=== PATIENT | female | born 1970 | race Caucasian/White ===

== ENCOUNTER 2020-09-29 08:38 | Observation (INO) ==
[2020-09-29] MEDS ORDERED: NS 0.9% 1000 ml BAG 1,000 ML IV ONE (09:26)
[2020-09-29] MEDS ORDERED: Labetalol IV 5 MG/ML 20 ml VIAL IV PUSH ONE ×2 (09:31→10:15)
[2020-09-29 09:45] LABS: ABS Eosinophils 0.1 10^3/ul (0-0.6); ABS Lymphocytes 1.3 10^3/ul (1.0-4.8); ABS Monocytes 0.7 10^3/ul (0-0.8); Eosinophil % 1.1 %; Hematocrit 46 % (35-47); Hemoglobin 15.8 g/dL (12.0-16.0); Lymphocyte % 15.6 %; Mean Corpuscular HGB Conc 34 g/dL (31-36); Mean Corpuscular Hemoglobin 30 pg (27-31); Mean Corpuscular Volume 86 fL (80-97); Mean Platelet Volume 8.2 fL (7.4-10.4); Platelet Count 287 10^3/uL (150-450); Red Blood Count 5.35 10^6 /uL (3.70-4.87); Red Cell Distribution Width 15 % (10-15)
[2020-09-29 09:55] LABS: Activated Partial Thrombo Time 33.7 seconds (26.0-38.0); INR 1.03 (0.82-1.09)
[2020-09-29 09:57] LABS: ALT 39 U/L (7-52); Albumin 4.2 g/dL (3.2-5.2); Albumin/Globulin Ratio 1.2 (1-3); Alkaline Phosphatase 123 U/L (34-104); BUN/Creatinine Ratio 19.8 (8-20); Blood Urea Nitrogen 16 mg/dL (6-24); C Reactive Protein 1.56 mg/L (<8.01); CO2 Carbon Dioxide 24 mmol/L (22-32); Calcium 8.9 mg/dL (8.6-10.3); Chloride 107 mmol/L (101-111); Cholesterol 222 mg/dL; EGFR African American 90.2 (>60); EGFR Non-African American 74.5 (>60); Globulin 3.5 g/dL (2-4); Glucose 112 mg/dL (70-100); HDL Cholesterol 52.9 mg/dL; LDL Cholesterol 150 mg/dL; Sodium 138 mmol/L (135-145); Total Protein 7.7 g/dL (6.4-8.9); Triglycerides 97 mg/dL
[2020-09-29 09:58] LABS: Troponin I 0.01 ng/mL (<0.03)
[2020-09-29 10:03] LABS: Anion Gap 7 mmol/L (2-11)
[2020-09-29 10:59] LABS: Potassium Redraw 3.9 mmol/L (3.5-5.0)
[2020-09-29] MEDS ORDERED: Enoxaparin 40 MG/0.4 ML SYR SUBCUT SCH ×2 (18:00→23:00)
[2020-09-29 21:17] LABS: Urine Appearance Clear; Urine Bilirubin Negative (Negative); Urine Blood Negative (Negative); Urine Color Yellow; Urine Glucose Negative (Negative); Urine Ketones Negative (Negative); Urine Nitrite Negative (Negative); Urine Protein Negative (Negative); Urine Specific Gravity 1.025 (1.010-1.030); Urine Urobilinogen Negative (Negative)
[2020-09-30 08:12] LABS: ABS Eosinophils 0.1 10^3/ul (0-0.6); ABS Lymphocytes 1.5 10^3/ul (1.0-4.8); ABS Monocytes 0.6 10^3/ul (0-0.8); ABS Neutrophils 4.2 10^3/ul (1.5-7.7); Eosinophil % 2.2 %; Hematocrit 42 % (35-47); Hemoglobin 14.4 g/dL (12.0-16.0); Lymphocyte % 23.7 %; Mean Corpuscular HGB Conc 35 g/dL (31-36); Mean Corpuscular Hemoglobin 30 pg (27-31); Mean Corpuscular Volume 86 fL (80-97); Platelet Count 237 10^3/uL (150-450); Red Blood Count 4.83 10^6 /uL (3.70-4.87); Red Cell Distribution Width 15 % (10-15); White Blood Count 6.5 10^3/uL (3.5-10.8)
[2020-09-30 08:39] LABS: CO2 Carbon Dioxide 19 mmol/L (22-32); Calcium 8.3 mg/dL (8.6-10.3); Chloride 109 mmol/L (101-111); Sodium 137 mmol/L (135-145)
[2020-09-30 08:41] LABS: Anion Gap 9 mmol/L (2-11)
[2020-09-30 08:44] LABS: BUN/Creatinine Ratio 21.1 (8-20); Blood Urea Nitrogen 15 mg/dL (6-24); EGFR Non-African American 86.8 (>60); Glucose 95 mg/dL (70-100)
[2020-09-30] MEDS ORDERED: Aspirin EC 325 mg TAB.EC PO SCH (09:00)
[2020-09-30] MEDS ORDERED: Potassium Chlor 20 meq TAB.ER PO ONE (12:05)
[2020-09-30 13:41] VITALS: BP 141/84
== END 2020-09-30 15:30 | disposition home or self-care (01) ==
LOC: MED 08:38 → ED 08:38 → MED 18:28
PROVIDERS: ADMIT Hospitalist; ATTEND Hospitalist

== ENCOUNTER 2021-04-17 05:58 | Inpatient (IN) ==
[2021-04-17] MEDS ORDERED: NS 0.9% 1000 ml BAG 2,000 ML IV ONE (06:39)
[2021-04-17] MEDS ORDERED: Ondansetron 4 mg VIAL 2 MG/ML 2 ml VIAL IV ONE ×2 (06:41→08:22)
[2021-04-17] MEDS ORDERED: Al Hydrox/Mg Hydrox/Simet LIQ 30 ML UDC PO ONE (06:42)
[2021-04-17 07:00] LABS: ABS Basophils 0.1 10^3/ul (0-0.2); ABS Lymphocytes 0.7 10^3/ul (1.0-4.8); ABS Monocytes 0.4 10^3/ul (0-0.8); ABS Neutrophils 10.6 10^3/ul (1.5-7.7); Hematocrit 38 % (35-47); Hemoglobin 12.3 g/dL (12.0-16.0); Lymphocyte % 6.1 %; Mean Corpuscular HGB Conc 32 g/dL (31-36); Mean Corpuscular Hemoglobin 21 pg (27-31); Mean Corpuscular Volume 66 fL (80-97); Mean Platelet Volume 8.3 fL (7.4-10.4); Platelet Count 360 10^3/uL (150-450); Red Cell Distribution Width 22 % (10-15); White Blood Count 11.8 10^3/uL (3.5-10.8)
[2021-04-17 07:13] LABS: ALT 43 U/L (7-52); AST 27 U/L (13-39); Albumin 4.7 g/dL (3.2-5.2); Albumin/Globulin Ratio 1.1 (1-3); Alkaline Phosphatase 171 U/L (35-149); Anion Gap 11 mmol/L (2-11); Blood Urea Nitrogen 9 mg/dL (6-24); CO2 Carbon Dioxide 25 mmol/L (22-32); Calcium 9.6 mg/dL (8.6-10.3); Chloride 100 mmol/L (101-111); EGFR African American 71.6 (>60); EGFR Non-African American 59.1 (>60); Globulin 4.2 g/dL (2-4); Glucose 150 mg/dL (70-100); Potassium 3.5 mmol/L (3.5-5.0); Sodium 136 mmol/L (135-145); Total Protein 8.9 g/dL (6.4-8.9)
[2021-04-17 07:19] LABS: HCG Pregnancy 5.95 mIU/mL
[2021-04-17 07:20] LABS: Troponin I 0.04 ng/mL (<0.03)
[2021-04-17] MEDS ORDERED: Iodixanol (CONTRAST) 320 MG/ML 100 ML SDV IV ONE (07:35)
[2021-04-17 07:44] LABS: T4, Total 11.53 mcg/dL (6.09-12.23)
[2021-04-17 07:47] LABS: TSH Ultra Thyroid Stim Horm 1.87 mcIU/mL (0.34-5.60)
[2021-04-17 09:23] LABS: Urine Appearance Clear; Urine Bilirubin Negative (Negative); Urine Blood Negative (Negative); Urine Color Straw; Urine Glucose Negative (Negative); Urine Ketones Trace (Negative); Urine Nitrite Negative (Negative); Urine Protein Negative (Negative); Urine Specific Gravity 1.021 (1.002-1.030); Urine Urobilinogen Negative (Negative)
[2021-04-17] MEDS ORDERED: Piperacillin/Tazobac ADVAN 3.375 GM in NS 0.9% 100 ml BAG 100 ML IV ONE (09:47)
[2021-04-17] MEDS ORDERED: Pantoprazole VIAL 40 MG VIAL IV ONE (09:50)
[2021-04-17] MEDS ORDERED: Zosyn per Pharmacy NOTE FOLLOW UP SCH (10:00)
[2021-04-17 10:19] LABS: % Iron Saturation 4 % (15-55); Iron 21 ug/dL (50-212); Total Iron Binding Capacity 564 mcg/dL (250-450); Transferrin 403 mg/dL (203-362); Unsaturated Iron Binding < 549 ug/dL
[2021-04-17 10:20] LABS: Troponin I 0.03 ng/mL (<0.03)
[2021-04-17 10:40] LABS: Ferritin 12.6 ng/mL (11-307)
[2021-04-17] MEDS ORDERED: ZOSYN 3.375 GM Q8H per EXTENDED INFUSION IV ONE (14:00)
[2021-04-17] MEDS: Heparin 5000 UNITS/ML 1 mL VIAL SUBCUT SCH ×2 (15:24→21:44)
[2021-04-17] MEDS: Morphine 2 MG/ML SYRINGE IV PRN ×2 (15:36→19:26)
[2021-04-17] MEDS: NS 0.9% 1000 ml BAG 1,000 ML IV SCH (17:09)
[2021-04-17] MEDS: Prochlorperazine 5 mg/ml 2 ml VIAL (10 mg) IV PRN (19:26)
[2021-04-18] MEDS: ZOSYN 3.375 GM Q8H per EXTENDED INFUSION IV SCH ×3 (00:10→15:42)
[2021-04-18] MEDS: Heparin 5000 UNITS/ML 1 mL VIAL SUBCUT SCH ×3 (05:05→20:21)
[2021-04-18] MEDS: Prochlorperazine 5 mg/ml 2 ml VIAL (10 mg) IV PRN (05:10)
[2021-04-18] MEDS: Morphine 2 MG/ML SYRINGE IV PRN (05:10)
[2021-04-18] MEDS: NS 0.9% 1000 ml BAG 1,000 ML IV SCH (05:15)
[2021-04-18 06:59] LABS: Albumin 3.7 g/dL (3.2-5.2); Albumin/Globulin Ratio 1.2 (1-3); Calcium 8.3 mg/dL (8.6-10.3); EGFR African American 79.9 (>60); Globulin 3.2 g/dL (2-4); Potassium 3.2 mmol/L (3.5-5.0); Total Bilirubin 0.5 mg/dL (0.2-1.0); Total Protein 6.9 g/dL (6.4-8.9)
[2021-04-18] MEDS: Pantoprazole VIAL 40 MG VIAL IV SCH (08:39)
[2021-04-18] MEDS ORDERED: Aspirin EC 81 mg TAB.EC (enteric coated) PO SCH (09:00)
[2021-04-18] MEDS: KCL 20 MEQ/100 ML IVPREMIX 20 MEQ/100 ML BAG IV SCH ×2 (10:19→15:52)
[2021-04-19] MEDS: ZOSYN 3.375 GM Q8H per EXTENDED INFUSION IV SCH ×3 (00:14→17:16)
[2021-04-19] MEDS: Heparin 5000 UNITS/ML 1 mL VIAL SUBCUT SCH ×3 (05:37→21:00)
[2021-04-19] MEDS: Prochlorperazine 5 mg/ml 2 ml VIAL (10 mg) IV PRN ×2 (08:08→14:14)
[2021-04-19] MEDS: Pantoprazole VIAL 40 MG VIAL IV SCH (08:10)
[2021-04-19] MEDS: Morphine 2 MG/ML SYRINGE IV PRN ×2 (08:19→13:50)
[2021-04-19 09:22] LABS: Albumin 3.6 g/dL (3.2-5.2); Albumin/Globulin Ratio 1.1 (1-3); Calcium 8.5 mg/dL (8.6-10.3); EGFR African American 80.9 (>60); EGFR Non-African American 66.9 (>60); Globulin 3.2 g/dL (2-4); Magnesium 1.8 mg/dL (1.9-2.7); Potassium 3.5 mmol/L (3.5-5.0); Total Bilirubin 0.4 mg/dL (0.2-1.0); Total Protein 6.8 g/dL (6.4-8.9)
[2021-04-19 09:24] LABS: Troponin I 0.01 ng/mL (<0.03)
[2021-04-19] MEDS ORDERED: Magnesium Sulfate IV 1GM/100ML 1 GM/100 ML BAG IV ONE (09:27)
[2021-04-19] MEDS: Aspirin EC 81 mg TAB.EC (enteric coated) PO SCH (13:33)
[2021-04-20] MEDS: ZOSYN 3.375 GM Q8H per EXTENDED INFUSION IV SCH ×4 (01:28→23:18)
[2021-04-20] MEDS: Morphine 2 MG/ML SYRINGE IV PRN ×2 (05:25→17:37)
[2021-04-20] MEDS: Prochlorperazine 5 mg/ml 2 ml VIAL (10 mg) IV PRN (05:25)
[2021-04-20 06:28] LABS: Calcium 8.5 mg/dL (8.6-10.3); EGFR African American 80.9 (>60); EGFR Non-African American 66.9 (>60); Magnesium 1.9 mg/dL (1.9-2.7); Potassium 3.4 mmol/L (3.5-5.0)
[2021-04-20 06:33] LABS: ABS Eosinophils 0.1 10^3/ul (0-0.6); ABS Lymphocytes 1.2 10^3/ul (1.0-4.8); ABS Monocytes 0.7 10^3/ul (0-0.8); ABS Neutrophils 5.2 10^3/ul (1.5-7.7); Eosinophil % 1.1 %; Hematocrit 32 % (35-47); Hemoglobin 10.3 g/dL (12.0-16.0); Lymphocyte % 16.1 %; Mean Corpuscular HGB Conc 32 g/dL (31-36); Mean Corpuscular Hemoglobin 22 pg (27-31); Mean Corpuscular Volume 67 fL (80-97); Mean Platelet Volume 8.6 fL (7.4-10.4); Platelet Count 264 10^3/uL (150-450); Red Blood Count 4.76 10^6 /uL (3.70-4.87); Red Cell Distribution Width 21 % (10-15); White Blood Count 7.2 10^3/uL (3.5-10.8)
[2021-04-20] MEDS: Pantoprazole VIAL 40 MG VIAL IV SCH (07:52)
[2021-04-20] MEDS: Aspirin EC 81 mg TAB.EC (enteric coated) PO SCH (07:52)
[2021-04-20] MEDS ORDERED: Bupivacaine 0.25% EPI 200,000 30 ML SDV ONE (11:31)
[2021-04-20] MEDS ORDERED: Midazolam 2 mg/2 ml VIAL 1 mg/ml 2 ml VIAL (2 mg) ONE ×2 (12:08→12:26)
[2021-04-20] MEDS ORDERED: Lidocaine 2% PF 5 ML VIAL ONE (12:08)
[2021-04-20] MEDS ORDERED: fentaNYL 100 mcg/2 ml 50 MCG/ML VIAL ONE ×3 (12:08→15:19)
[2021-04-20] MEDS ORDERED: Propofol 10 MG/ML 20 ML BTL ONE (12:28)
[2021-04-20] MEDS ORDERED: Ondansetron 4 mg VIAL 2 MG/ML 2 ml VIAL ONE (12:28)
[2021-04-20] MEDS ORDERED: Dexamethasone IV 4 MG/ML VIAL 1 ml VIAL ONE (12:28)
[2021-04-20] MEDS ORDERED: Rocuronium 50 mg VIAL 10 mg/ml 5 ml VIAL (50 mg) ONE ×2 (12:28→13:36)
[2021-04-20] MEDS ORDERED: DiMENhydriNATE IV 50 mg/ml 1 ml VIAL IV PUSH PRN (13:03)
[2021-04-20] MEDS ORDERED: Ondansetron 4 mg VIAL 2 MG/ML 2 ml VIAL IV PRN (13:03)
[2021-04-20] MEDS ORDERED: Naloxone 0.4 mg VIAL 0.4 mg/ml 1 ml VIAL IV PRN (13:03)
[2021-04-20] MEDS ORDERED: Acetaminophen IV 1 GM/100ML 100 ML IV ONE (13:38)
[2021-04-20] MEDS ORDERED: NS 0.9% 1000 ml BAG 1,000 ML IV SCH (14:45)
[2021-04-20] MEDS ORDERED: DiMENhydriNATE IV 50 mg/ml 1 ml VIAL ONE (14:51)
[2021-04-20] MEDS: fentaNYL 100 mcg/2 ml 50 MCG/ML VIAL IV PRN ×2 (15:20→15:25)
[2021-04-21] MEDS: Morphine 2 MG/ML SYRINGE IV PRN ×2 (02:34→08:38)
[2021-04-21 07:57] VITALS: BP 134/85
[2021-04-21] MEDS: ZOSYN 3.375 GM Q8H per EXTENDED INFUSION IV SCH (08:38)
[2021-04-21] MEDS: Aspirin EC 81 mg TAB.EC (enteric coated) PO SCH (08:38)
[2021-04-21] MEDS: Pantoprazole VIAL 40 MG VIAL IV SCH (08:38)
[2021-04-21 08:59] LABS: ABS Lymphocytes 1.2 10^3/ul (1.0-4.8); ABS Monocytes 1.2 10^3/ul (0-0.8); ABS Neutrophils 8.3 10^3/ul (1.5-7.7); Hematocrit 30 % (35-47); Hemoglobin 9.7 g/dL (12.0-16.0); Lymphocyte % 11.6 %; Mean Corpuscular HGB Conc 33 g/dL (31-36); Mean Corpuscular Hemoglobin 22 pg (27-31); Mean Corpuscular Volume 66 fL (80-97); Mean Platelet Volume 8.4 fL (7.4-10.4); Platelet Count 274 10^3/uL (150-450); Red Blood Count 4.53 10^6 /uL (3.70-4.87); Red Cell Distribution Width 21 % (10-15); White Blood Count 10.8 10^3/uL (3.5-10.8)
[2021-04-21 09:15] LABS: Albumin 3.8 g/dL (3.2-5.2); Albumin/Globulin Ratio 1.2 (1-3); Calcium 8.5 mg/dL (8.6-10.3); EGFR African American 90.2 (>60); EGFR Non-African American 74.5 (>60); Globulin 3.3 g/dL (2-4); Magnesium 1.8 mg/dL (1.9-2.7); Potassium 3.4 mmol/L (3.5-5.0); Total Bilirubin 0.4 mg/dL (0.2-1.0); Total Protein 7.1 g/dL (6.4-8.9)
[2021-04-21] MEDS ORDERED: oxyCODONE/Acetamin 5/325 mg TAB PO PRN (11:07)
== END 2021-04-21 13:30 | disposition home or self-care (01) | DRG 263 ==
LOC: ED 05:58 → MED 05:58
PROVIDERS: ADMIT Internal Medicine; ATTEND Hospitalist